=== PATIENT | female | born 1995 | race Caucasian/White ===

== ENCOUNTER 2016-12-31 12:57 | Emergency (ER) | payer OTHER ==
[~2016-12-31] VITALS: Ht 167.6 cm; Wt 101.0 kg
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
[~2016-12-31 12:57] MED LIST: ALBUTEROL17 GM INH; AMLODIPINE BESYL5 MG PO; AUGMENTIN PO; BACTRIM DS TABL1 TAB PO; BENTYL10 MG PO; CLONIDINE PO; CONCERTA PO; FAMOTIDINE PO; FLECTOR1 EACH PO; IBUPROFEN PO; IBUPROFEN800 MG PO; LAMICTAL PO; LINZESS145 MCG PO; METOPROLOL SUC100 MG PO; NORVASC PO; OMEPRAZOLE20 M1 PO; PANTOPRAZOLE SO40 MG PO; PREDNISONE1 MG PO; PROTONIX PO; SEROQUEL PO; SEROQUEL XR200 MG PO; SERTRALINE HCL100 M1 PO; SINGULAIR PO; SYNTHROID0.1 MG PO; TEGRETOL XR200 MG PO; TYLENOL #3 PO; VISTARIL50 MG PO; ZOFRAN ODT4 MG PO; [UNRECOGNIZED DRUG - OTHER]
[2016-12-31] MEDS ORDERED: KLONOPIN1 MG (13:20)
== END 2016-12-31 14:47 | disposition home or self-care (01) ==
LOC: SED 12:57
DX: S16.1XXA Strain of muscle, fascia and tendon at neck level, initial encounter (principal); S39.012A Strain of muscle, fascia and tendon of lower back, initial encounter; J45.909 Unspecified asthma, uncomplicated; Z88.0 Allergy status to penicillin; Z88.5 Allergy status to narcotic agent; Z88.8 Allergy status to other drugs, medicaments and biological substances; Z79.899 Other long term (current) drug therapy; V49.40XA Driver injured in collision with unspecified motor vehicles in traffic accident, initial encounter; Y92.410 Unspecified street and highway as the place of occurrence of the external cause
CPT/HCPCS: 71020; 72040; 72100; 99284